=== PATIENT | female | born 1985 | race Two or more races ===

== ENCOUNTER 2018-11-22 22:53 | Emergency (ER) | payer MEDICAID ==
[~2018-11-22] VITALS: Ht 167.6 cm; Wt 78.0 kg
[2018-11-22 23:24] LABS: Basophils # (auto) 0.1 uL; Basophils % (auto) 0.9 % (0.0-2.0); Eosinophils # (auto) 0.1 uL; Hematocrit 40.4 % (36.0-46.0); Hemoglobin 13.2 g/dL (12.2-16.2); Lymphocytes # (auto) 1.7 uL; Lymphocytes % (auto) 28.7 % (10.0-50.0); Mean Corpuscular Hemoglobin 27.1 pg (28.0-32.0); Mean Corpuscular Hgb Conc. 32.6 g/dL (32.0-36.0); Mean Corpuscular Volume 83.2 fL (80.0-100.0); Monocytes # (auto) 0.5 uL; Monocytes % (auto) 7.6 % (0.0-12.0); Neutrophils # (auto) 3.7 uL; Neutrophils % (auto) 61.8 % (37.0-80.0); Platelet Count (auto) 148 10^3/uL (140-450); Red Blood Cells 4.86 10^6/uL (4.0-5.20); Red Cell Distribution Width 15.8 % (11.8-14.3)
[2018-11-22 23:44] LABS: Albumin 3.8 g/dL (3.4-5.0); BUN/Creatinine Ratio 10.4; Calcium 9.2 mg/dL (8.5-10.1); Potassium 3.9 mmol/L (3.5-5.1)
[2018-11-22 23:47] LABS: Bilirubin, Total 0.3 mg/dL (0.2-1.0); Total Protein 8.3 g/dL (6.4-8.2)
[2018-11-23 00:32] LABS: Urine Bacteria FEW /hpf (None Seen); Urine Blood 2+ /uL (Negative); Urine Specific Gravity 1.017 (1.001-1.035); Urine WBC 5 /hpf (0 - 5)
[2018-11-23 00:38] LABS: Alcohol, Urine < 3.0 mg/dL (0-5); Amphetamine Screen, Urine NEGATIVE (NEGATIVE); Barbiturate Scree,Urine NEGATIVE (NEGATIVE); Benzodiazephine Screen, Urine NEGATIVE (NEGATIVE); Cannabinoid Screen, Urine NEGATIVE (NEGATIVE); Cocaine Screen, Urine NEGATIVE (NEGATIVE); Opiate Scree,Urine NEGATIVE (NEGATIVE); Phencyclidine Screen, Urine NEGATIVE (NEGATIVE)
[2018-11-23 06:00] VITALS: BP 96/59
== END 2018-11-23 06:24 | disposition home or self-care (01) ==
LOC: ER 22:56
DX: N93.8 Other specified abnormal uterine and vaginal bleeding (principal); Z88.5 Allergy status to narcotic agent; Z98.51 Tubal ligation status
CPT/HCPCS: 36415; 76856; 80053; 80307; 81001; 84702; 85025; 86850; 86900; 86901